=== PATIENT | male | born 1950 | race Caucasian/White ===

== ENCOUNTER 2016-11-03 23:13 | Emergency (ER) | payer OTHER ==
[~2016-11-03] VITALS: Ht 165.1 cm; Wt 68.2 kg
[2016-11-03 23:17] VITALS: Ht 165.1 cm; Wt 68.2 kg
[2016-11-03] MEDS ORDERED: KETOROLAC 30 MG INJ IM STA (23:55)
[2016-11-04 00:04] LABS: URINE BLOOD (Dip) POC Negative (NEGATIVE)
--- NOTE | 2016-11-04 00:19 | ERD ---
ER Documentation Chief Complaint Date/Time DATE: 11/04/16 TIME: 00:16 Chief Complaint LOW BACK PAIN X3 DAYS. 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 Patient states he has taken Motrin for pain with limited improvement in symptoms. . States that the pain is worse with movement. States that he feels better when he walks.Denies any fevers or chills, dysuria, loss of bowel or bladder control. ROS All systems reviewed and are negative except as per history of present illness. Medications Home Meds Active Scripts Cyclobenzaprine Hcl* (Cyclobenzaprine Hcl*) 10 Mg Tablet, 10 MG PO QHS, #7 TAB Prov:LAYA ROBLERO PA-C 11/04/16 Naproxen* (Naprosyn*) 500 Mg Tablet, 500 MG PO BID Y for PAIN AND/OR INFLAMMATION, #30 TAB Prov:LAYA ROBLERO PA-C 11/04/16 Tramadol HCl (Tramadol HCl) 50 Mg Tablet, 50 MG PO Q4 Y for PAIN, #20 TAB Prov:LAYA ROBLERO PA-C 11/04/16 Allergies Allergies: Coded Allergies: No Known Allergy (Unverified , 11/03/16) PMhx/Soc Hx Alcohol Use: Yes Hx Substance Use: No Hx Tobacco Use: No Smoking Status: Former smoker Physical Exam Vitals Vital Signs Date Time Temp Pulse Resp B/P Pulse Ox O2 Delivery O2 Flow Rate FiO2 11/03/16 23:17 97.1 64 18 164/77 99 Physical Exam Const: No acute distress Head: Atraumatic Eyes: Normal Conjunctiva ENT: Normal External Ears, Nose and Mouth. Neck: Full range of motion..~ No meningismus. Resp: Clear to auscultation bilaterally Cardio: Regular rate and rhythm, no murmurs Abd: Soft, non tender, non distended. Normal bowel sounds Skin: No petechiae or rashes Back: No midline tenderness. Left-sided paraspinal tenderness and flank tenderness. Full active range of motion increased pain with trunk horizontal flexion to the left. Pulses 2+ per distal neurovascularly intact. Negative straight leg raise. Ext: No cyanosis, or edema Neur: Awake and alert Psych: Normal Mood and Affect Results 24 hrs Laboratory Tests Test 11/04/16 00:09 Bedside Urine pH (LAB) 6.0 Bedside Urine Protein (LAB) Negative Bedside Urine Glucose (UA) Negative Bedside Urine Ketones (LAB) Negative Bedside Urine Blood Negative Bedside Urine Nitrite (LAB) Negative Bedside Urine Leukocyte Esterase (L Negative Current Medications Medications (Trade) Dose Ordered Sig/Mariah Route PRN Reason Start Time Stop Time Status Last Admin Dose Admin Ketorolac Tromethamine (Toradol) 30 mg ONCE STAT IM 11/03/16 23:55 11/03/16 23:56 DC 11/04/16 00:05 Procedures/MDM This a 66-year-old male presents the emergency department today complaining of some left-sided back pain for the past 2-3 days. Patient is afebrile and otherwise well-appearing. On physical exam he did not have any midline tenderness and I do not feel he requires imaging at this time. He did have some left-sided flank pain and therefore did obtain a UA UA is negative for infection or hematuria suspicion for UTI, pyelonephritis or nephrolithiasis because of back pain. Low suspicion for acute fracture dislocation given that there was no trauma. Low suspicion for cauda equina or abscess. Patient has no loss of bowel or bladder control Symptoms at this time is consistent with musculoskeletal strain versus sprain especially given that the pain is worse with trunk flexion.. Patient was given a Toradol injection here in the emergency department. I will give him a short course of tramadol, Naprosyn and Flexeril for home At this time the patient is stable for discharge and outpatient management. Patient should follow up with their PCP in the next 1-2 days. They may return to the emergency department sooner for any persistent or worsening of symptoms. Patient understood and agreed with the plan. Departure Diagnosis: Primary Impression: Back pain Back pain location: low back pain Chronicity: acute Back pain laterality: left Sciatica presence: without sciatica Qualified Code: M54.5 - Acute left- sided low back pain without sciatica Condition: LAYA Zuniga PA-C Nov 04, 2016 00:18
[2016-11-04] MEDS ORDERED: TRAM50TA2 PO (00:24)
[2016-11-04] MEDS ORDERED: NAPR-260 PO (00:25)
[2016-11-04] MEDS ORDERED: CYCL-319 PO (00:25)
[2016-11-05] MEDS ORDERED: CYCL-319 PO (12:16)
[2016-11-05] MEDS ORDERED: TRAM50TA2 PO (12:16)
[2016-11-05] MEDS ORDERED: PRED20TA PO (12:18)
--- NOTE | 2016-11-11 14:17 | ERD ---
ER Documentation Chief Complaint Date/Time DATE Of service: 11/05/16 TIME: 14:15 Date of dictation 11/11/2016 Chief Complaint LOW BACK PAIN X3 DAYS. 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 Denies trauma. May do repetitive lifting. Seen 2 days ago and has no relief with Matthews and ibuprofen. Did not have an x-ray. Denies bowel or bladder incontinence, weakness, fevers, flank pain, urinary complaints. ROS All systems reviewed and are negative except as per history of present illness. Medications Home Meds Active Scripts Prednisone* (Prednisone*) 20 Mg Tab, 40 MG PO DAILY for 4 Days, TAB Prov:MARCELLA POOLE MD 11/05/16 Tramadol HCl (Tramadol HCl) 50 Mg Tablet, 50 MG PO Q4 Y for PAIN, #20 TAB Prov:MARCELLA POOLE MD 11/05/16 Cyclobenzaprine Hcl* (Cyclobenzaprine Hcl*) 10 Mg Tablet, 10 MG PO TID, #15 TAB Prov:MARCELLA POOLE MD 11/05/16 Cyclobenzaprine Hcl* (Cyclobenzaprine Hcl*) 10 Mg Tablet, 10 MG PO QHS, #7 TAB Prov:LAYA ROBLERO PA-C 11/04/16 Naproxen* (Naprosyn*) 500 Mg Tablet, 500 MG PO BID Y for PAIN AND/OR INFLAMMATION, #30 TAB Prov:LAYA ROBLERO PA-C 11/04/16 Tramadol HCl (Tramadol HCl) 50 Mg Tablet, 50 MG PO Q4 Y for PAIN, #20 TAB Prov:LAYA ROBLERO PA-C 11/04/16 Allergies Allergies: Coded Allergies: No Known Allergy (Unverified , 11/03/16) PMhx/Soc Hx Alcohol Use: Yes Hx Substance Use: No Hx Tobacco Use: No Smoking Status: Former smoker Physical Exam Physical Exam Const: []Alert, [id number] per Head: Atraumatic Eyes: Normal Conjunctiva ENT: Normal External Ears, Nose and Mouth. Neck: Full range of motion..~ No meningismus. Resp: Clear to auscultation bilaterally Cardio: Regular rate and rhythm, no murmurs Abd: Soft, non tender, non distended. Normal bowel sounds Skin: No petechiae or rashes Back: No midline or flank tenderness. Tenderness diffusely L4 L5 paraspinous muscles. No appreciable midline tenderness or deformities. Normal gait. No appreciable focal neurologic deficits Ext: No cyanosis, or edema Neur: Awake and alert Psych: Normal Mood and Affect Results 24 hrs Laboratory Tests Test 11/04/16 00:09 Bedside Urine pH (LAB) 6.0 Bedside Urine Protein (LAB) Negative Bedside Urine Glucose (UA) Negative Bedside Urine Ketones (LAB) Negative Bedside Urine Blood Negative Bedside Urine Nitrite (LAB) Negative Bedside Urine Leukocyte Esterase (L Negative Current Medications Medications (Trade) Dose Ordered Sig/Mariah Route PRN Reason Start Time Stop Time Status Last Admin Dose Admin Ketorolac Tromethamine (Toradol) 30 mg ONCE STAT IM 11/03/16 23:55 11/03/16 23:56 DC 11/04/16 00:05 Procedures/MDM X-ray LS-Spine 3V Interpreted by me: Bones: No fracture, or lytic lesions Joints: No dislocation Foreign body: None. Impression-degenerative changes lumbar spine. L4-L5 and L5-S1 Patient was given Toradol IM. Urine is negative for leukocytes, nitrites, blood , glucose. Patient presents with low back pain, likely musculoskeletal without evidence of cauda equina syndrome, epidural abscess, bacterial infection, genitourinary etiology. He will treated with tramadol ibuprofen and continued observation and home and instructions for back exercises. The patient was stable with no new complaints during the ER course. Clinically, there is no current evidence to suggest meningitis, sepsis, acute abdomen, pneumonia, acute coronary syndrome , pulmonary embolism, or any other emergent condition appearing to require further evaluation or hospitalization. The patient should certainly return for any new or worsening symptoms per the aftercare instructions. They should otherwise follow-up with her primary care doctor for reevaluation this week. Departure Diagnosis: Primary Impression: Back pain Condition: Fair Patient Instructions: Back Pain (Acute Or Chronic) Referrals: your PCP Additional Instructions: Call your primary care doctor TOMORROW for an appointment during the next 1-2 days.See the doctor sooner or return here if your condition worsens before your appointment time. Take tramadol for severe pain otherwise take Naprosyn or Tylenol Motrin Take Flexeril for muscle spasms. Take only at night and do not drive while taking this medication Apply ice and heat intermittently for pain MARCELLA POOLE MD Nov 11, 2016 14:17
== END 2016-11-04 00:40 | disposition home or self-care (01) ==
LOC: FTE 23:13
DX: M54.5 Low back pain (principal); Z87.891 Personal history of nicotine dependence
CPT/HCPCS: 81003; 96372; 99284; J1885

== ENCOUNTER 2016-11-05 09:55 | Emergency (ER) | payer OTHER ==
[~2016-11-05] VITALS: Wt 68.2 kg
[~2016-11-05 09:55] MED LIST: CYCL-319 PO; NAPR-260 PO; TRAM50TA2 PO
[2016-11-05] MEDS ORDERED: IBUPROFEN 600 MG TAB ONE (11:15)
[2016-11-05] MEDS ORDERED: traMADol 50 MG TAB ONE (11:16)
[2016-11-05] MEDS ORDERED: TRAM50TA2 PO (12:16)
[2016-11-05] MEDS ORDERED: CYCL-319 PO (12:16)
[2016-11-05] MEDS ORDERED: PRED20TA PO (12:18)
--- NOTE | 2016-11-05 12:35 | RADRPT ---
PROCEDURE: XR lumbar spine CLINICAL INDICATION: Back pain TECHNIQUE: 3 views of the lumbar spine obtained COMPARISON: None available FINDINGS: No fracture is identified. There is preservation of the lordosis of the lumbar spine. Alignment is grossly intact. Vertebral bodies are maintained in height. There are anterior osteophytes at L4-5 and L5-S1 with moderate - severe disk space narrowing and vacuum changes at these levels. Facet ar thropathy is also seen at the L4-5 and L5-S1 levels. IMPRESSION: Advanced lower lumbar spondylosis/degenerative enthesopathy. RPTAT: VV .Neftaly Duque MD, Date Time Electronically viewed and signed by .Neftaly Duque MD, on 11/05/2016 12:35 .O/
--- NOTE | 2016-11-27 15:43 | ERD ---
ER Documentation Chief Complaint Date/Time Date of service 11/05/2016. Date of dictation 11/27/2016: Chief Complaint back pain, seen here prior for same unresolved HPI 58-year-old male complains of low back pain after awkward movement last week. He is seen here 2 days ago. He has persistent pain despite ibuprofen. Is requesting x-rays x-ray was not performed. Denies any bowel or bladder incontinence, fevers, weakness. ROS All systems reviewed and are negative except as per history of present illness. Medications Home Meds Active Scripts Prednisone* (Prednisone*) 20 Mg Tab, 40 MG PO DAILY for 4 Days, TAB Prov:MARCELLA POOLE MD 11/05/16 Tramadol HCl (Tramadol HCl) 50 Mg Tablet, 50 MG PO Q4 Y for PAIN, #20 TAB Prov:MARCELLA POOLE MD 11/05/16 Cyclobenzaprine Hcl* (Cyclobenzaprine Hcl*) 10 Mg Tablet, 10 MG PO TID, #15 TAB Prov:MARCELLA POOLE MD 11/05/16 Cyclobenzaprine Hcl* (Cyclobenzaprine Hcl*) 10 Mg Tablet, 10 MG PO QHS, #7 TAB Prov:LAYA ROBLERO PA-C 11/04/16 Naproxen* (Naprosyn*) 500 Mg Tablet, 500 MG PO BID Y for PAIN AND/OR INFLAMMATION, #30 TAB Prov:LAYA ROBLERO PA-C 11/04/16 Tramadol HCl (Tramadol HCl) 50 Mg Tablet, 50 MG PO Q4 Y for PAIN, #20 TAB Prov:LAYA ROBLERO PA-C 11/04/16 Allergies Allergies: Coded Allergies: No Known Allergy (Unverified , 11/03/16) PMhx/Soc Medical and Surgical Hx: pt denies Medical Hx, pt denies Surgical Hx Hx Alcohol Use: Yes Hx Substance Use: No Hx Tobacco Use: No Smoking Status: Never smoker Physical Exam Physical Exam Const: [], [id number] Head: Atraumatic Eyes: Normal Conjunctiva ENT: Normal External Ears, Nose and Mouth. Neck: Full range of motion..~ No meningismus. Resp: Clear to auscultation bilaterally Cardio: Regular rate and rhythm, no murmurs Abd: Soft, non tender, non distended. Normal bowel sounds Skin: No petechiae or rashes Back: No midline or flank tenderness. Tenderness L4-5 paraspinous muscles without midline tenderness or deformities. Normal gait. Ext: No cyanosis, or edema Neur: Awake and alert. No appreciable focal neurologic deficits Psych: Normal Mood and Affect Results 24 hrs Current Medications Medications (Trade) Dose Ordered Sig/Mariah Route PRN Reason Start Time Stop Time Status Last Admin Dose Admin Ibuprofen (Motrin) 600 mg STK-MED ONCE .ROUTE 11/05/16 11:15 11/05/16 16:57 DC Tramadol HCl (Ultram) 50 mg STK-MED ONCE .ROUTE 11/05/16 11:16 11/05/16 16:57 DC Procedures/MDM X-ray LS-Spine 3V Interpreted by me: Bones: [No fracture] Joints: [No dislocation] Foreign body: [None] impression-advanced degenerative changes lumbar spine without fractures or dislocations Departure Diagnosis: Primary Impression: Back pain Condition: Stable Patient Instructions: Back Exercises, Lumbar, Back Pain (Acute Or Chronic) Additional Instructions: X-ray shows degenerative changes without fracture dislocation. Recommend primary care follow-up and physical therapy. Return for fevers, deficits, new worsening symptoms. MARCELLA POOLE MD Nov 27, 2016 15:43
== END 2016-11-05 12:23 | disposition home or self-care (01) ==
LOC: FTE 09:55
DX: M54.5 Low back pain (principal)
CPT/HCPCS: 72100